=== PATIENT | male | born 1955 | race Caucasian/White ===

== ENCOUNTER 2017-03-16 14:33 | Emergency (ER) | payer OTHER ==
[~2017-03-16] VITALS: Ht 172.7 cm; Wt 142.2 kg
[~2017-03-16 14:33] MED LIST: ASPI81TA28 PO; DLTCD/240 PO; FURO-85 PO; GLC5 PO; LISI20TA3 PO; MISC1CAP60 PO; OMEG-112 PO
[2017-03-16 14:36] VITALS: TEMP 36.7; Ht 172.7 cm; Wt 142.2 kg
--- NOTE | 2017-03-16 14:43 | EMERGENCY ROOM VISIT NOTE ---
History Report prepared by Codie: Gwendolyn Ramos Under the Supervision of: Dr. Marty Zaidi D.O. First contact with patient: 14:39 Chief Complaint: STROKE SYMPTOMS Stated Complaint: RT SIDE OF FACE IS DROPPING History of Present Illness The patient is a 62 year old male who presents to the Emergency Room with complaints of constant right sided facial droop beginning 3 days prior to arrival. He states that he first noticed this when his glasses would not sit evenly on his face. The patient also notes that yesterday he began to experience amplified sound in his right ear. 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 He denies weakness in arms or legs, nausea, vomiting, rash, tobacco use or alcohol use. The patient has a history of diabetes and hypertension. 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 A total of 10 systems reviewed and were otherwise negative. Past Medical & Surgical Medical Problems: (1) DIAB DARRELL WO COMPL, TYPE II OR UNSPEC TYPE, NOT UNCNTRLD (2) HYPERTENSION NOS Family History Diabetes mellitus Heart disease Hypertension Social History Smoking Status: Never Smoker Alcohol Use: occasionally Drug Use: none Marital Status: single Housing Status: lives alone Occupation Status: employed Current/Historical Medications Scheduled Aspirin (Aspirin Ec), 81 MG PO DAILY Diltiazem Hcl (Diltiazem Cd), 1 CAP PO DAILY Furosemide (Lasix), 80 MG PO DAILY Glipizide (Glipizide), 5 MG PO DAILY Lisinopril/Hctz (Zestoretic 20MG/25MG), 1 TAB PO QAM Misc Natural Products ([place]), 1 CAP PO BID [id number] Ethyl Esters ([place]-3), CAP PO DIRECTED Omeprazole (Prilosec), 20 MG PO DAILY Prednisone (Prednisone Tab), 60 MG PO DAILY Valacyclovir Hcl (Valtrex), 1,000 MG PO TID [Honey], 1 TBS PO QAM [Vinegar], 2 TBS PO QAM Allergies Coded Allergies: Metformin (Verified Adverse Reaction, Intermediate, ACUTE DIARRHEA, ABDOMINAL CRAMPING, 03/16/17) Physical Exam Vital Signs Date Time Temp Pulse Resp B/P Pulse Ox O2 Delivery O2 Flow Rate FiO2 03/16/17 16:10 83 03/16/17 15:35 79 18 141/80 95 Room Air 03/16/17 14:59 97 Room Air 03/16/17 14:36 36.7 92 18 192/95 96 Room Air Physical Exam GENERAL: Patient is awake, alert, and in no acute distress. Patient is resting comfortably and showing no signs of anxiety EYES: The conjunctivae are clear. The pupils are round and reactive. Patient has mild difficulty completely closing right eye. EARS, NOSE, MOUTH AND THROAT: The nose is without any evidence of any deformity. Mucous membranes are moist tongue is midline. TM clear bilaterally. NECK: The neck is nontender and supple. RESPIRATORY: Normal respiratory effort is noted there is no evidence of wheezing rhonchi or rales CARDIOVASCULAR: Regular rate and rhythm noted there no murmurs rubs or gallops normal S1 normal S2 GASTROINTESTINAL: The abdomen is soft. Bowel sounds are present in all quadrants. Abdomen is nontender MUSCULOSKELETAL/EXTREMITIES: There is no evidence of gross deformity full range of motion is noted in the hips and shoulders SKIN: Pitting edema bilaterally. There is no obvious evidence of any rash. There are no petechiae, pallor or cyanosis noted. NEUROLOGIC: Patient is awake alert and oriented x3 strength is symmetric patellar reflexes are 2+ bilaterally. Right side facial droop involving forehead. Medical Decision & Procedures ER Provider Diagnostic Interpretation: Radiology results as stated below per my review and radiologist interpretation: CT SCAN OF THE BRAIN WITHOUT IV CONTRAST CLINICAL HISTORY: Change in mental status. Weakness. COMPARISON STUDY: No priors. TECHNIQUE: Unenhanced axial CT scan of the brain is performed from the vertex to the skull base. CT DOSE: 614.27 mGy.cm FINDINGS: Brain parenchyma: There are age-related involutional changes noting mild subcortical and periventricular microangiopathic change. There is no hemorrhage, mass effect, or evidence of acute territorial ischemia by CT criteria. Lopez-white matter is preserved. No extra-axial fluid collection is seen. Ventricles, sulci, cisterns: Prominent secondary to involutional change. Intracranial vasculature: There is atherosclerotic calcification of the cavernous carotid arteries. Calvarium: Unremarkable. Sinuses and mastoids: There is mild mucosal thickening within the frontal, ethmoid, and left maxillary sinuses. The mastoid air cells are well pneumatized. Orbits: The bony orbits are grossly intact. IMPRESSION: There is no hemorrhage, mass effect, or evidence of acute territorial ischemia by CT criteria. Electronically signed by: Garrison Campbell M.D. 03/16/2017 3:21 PM Dictated Date/Time: 03/16/2017 3:19 PM CHEST ONE VIEW PORTABLE CLINICAL HISTORY: Altered mental status. Weakness. COMPARISON STUDY: No previous studies for comparison. FINDINGS: Volumes are normal. There is no pneumothorax or pleural effusion. There is possible opacity within the medial right lung base. Left lung is clear. Cardiac size is normal. There is no evidence of pulmonary edema. IMPRESSION: Possible opacity within the medial right lung base. This is probably artifactual although consolidation could appear similar. Follow-up PA and lateral chest radiographs in 2 weeks are recommended. Electronically signed by: Yfn June M.D. 03/16/2017 3:40 PM Dictated Date/Time: 03/16/2017 3:38 PM Laboratory Results 03/16/17 14:54 Red Blood Count 5.31, Mean Corpuscular Volume 87.8, Mean Corpuscular Hemoglobin 30.3, Mean Corpuscular Hemoglobin Concent 34.5, Mean Platelet Volume 9.5, Neutrophils (%) (Auto) 58.0, Lymphocytes (%) (Auto) 26.5, Monocytes (%) (Auto) 8.9, Eosinophils (%) (Auto) 5.7, Basophils (%) (Auto) 0.6, Neutrophils # (Auto) 5.45, Lymphocytes # (Auto) 2.49, Monocytes # (Auto) 0.84, Eosinophils # (Auto) 0.54, Basophils # (Auto) 0.06 03/16/17 14:54 Test 03/16/17 14:54 03/16/17 16:05 White Blood Count 9.41 K/uL (4.8-10.8) Red Blood Count 5.31 M/uL (4.7-6.1) Hemoglobin 16.1 g/dL (14.0-18.0) Hematocrit 46.6 % (42-52) Mean Corpuscular Volume 87.8 fL (80-100) Mean Corpuscular Hemoglobin 30.3 pg (25-34) Mean Corpuscular Hemoglobin Concent 34.5 g/dl (32-36) Platelet Count 386 K/uL (130-400) Mean Platelet Volume 9.5 fL (7.4-10.4) Neutrophils (%) (Auto) 58.0 % Lymphocytes (%) (Auto) 26.5 % Monocytes (%) (Auto) 8.9 % Eosinophils (%) (Auto) 5.7 % Basophils (%) (Auto) 0.6 % Neutrophils # (Auto) 5.45 K/uL (1.4-6.5) Lymphocytes # (Auto) 2.49 K/uL (1.2-3.4) Monocytes # (Auto) 0.84 K/uL (0.11-0.59) Eosinophils # (Auto) 0.54 K/uL (0-0.5) Basophils # (Auto) 0.06 K/uL (0-0.2) RDW Standard Deviation 39.9 fL (36.4-46.3) RDW Coefficient of Variation 12.5 % (11.5-14.5) Immature Granulocyte % (Auto) 0.3 % Immature Granulocyte # (Auto) 0.03 K/uL (0.00-0.02) Prothrombin Time 10.0 SECONDS (9.0-12.0) Prothromb Time International Ratio 0.9 (0.9-1.1) Activated Partial Thromboplast Time 27.4 SECONDS (21.0-31.0) Partial Thromboplastin Ratio 1.1 Anion Gap 5.0 mmol/L (3-11) Est Creatinine Clear Calc Drug Dose 72.5 ml/min Estimated GFR () 57.8 Estimated GFR (Non- 49.9 BUN/Creatinine Ratio 11.6 (10-20) Calcium Level 9.5 mg/dl (8.5-10.1) Magnesium Level 2.3 mg/dl (1.8-2.4) Total Bilirubin 0.4 mg/dl (0.2-1) Direct Bilirubin < 0.1 mg/dl (0-0.2) Aspartate Amino Transf (AST/SGOT) 18 U/L (15-37) Alanine Aminotransferase (ALT/SGPT) 41 U/L (12-78) Alkaline Phosphatase 75 U/L (45-117) Troponin I < 0.015 ng/ml (0-0.045) Total Protein 8.4 gm/dl (6.4-8.2) Albumin 4.3 gm/dl (3.4-5.0) Lyme Disease IgG Antibody NEG (NEG) Lyme Disease IgM Antibody NEG (NEG) Laboratory results per my review. Medications Administered Medications (Trade) Dose Ordered Sig/Zafar Route Start Time Stop Time Status Last Admin Dose Admin Prednisone (PredniSONE TAB) 60 mg NOW STAT PO 03/16/17 15:33 03/16/17 15:35 DC 03/16/17 15:54 60 MG Valacyclovir HCl (Valtrex Tab) 1,000 mg NOW ONCE PO 03/16/17 15:45 03/16/17 15:46 DC 03/16/17 15:54 1,000 MG ECG Indication: weakness Rate (beats per minute): 86 Rhythm: normal sinus Findings: nonspecific-ST abn (none), no ectopy ED Course 1439: The patient was evaluated in room B1. A complete history and physical examination were performed. 1533: Prednisone Tab 60 mg PO. 1545: Valtrex Tab 1,000 ml PO. 1617: I reevaluated the patient and he is doing well. 1623: Upon reevaluation, the patient is hemodynamically stable. I discussed the results and treatment plan with the patient. He verbalized agreement of the treatment plan. He was discharged home. Medical Decision Differential diagnosis: Etiologies such as metabolic, infection, hypo/hyperglycemia, electrolyte abnormalities, cardiac sources, intracerebral event, toxicologic, neurologic, as well as others were entertained. Nursing notes reviewed. The patient is a 62-year-old male who presented to the emergency department for an evaluation of right facial droop. The patient had right facial droop with 4 head involvement. 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 I discussed patient's laboratory radiographic studies with him. He does have significant eye involvement. For this reason he was started on steroids as well as Valtrex. The patient was encouraged to follow-up with his primary care physician as soon as possible. He was encouraged to continue all medications as prescribed. He was also encouraged to repeat chest x-ray because of the incidental note on chest x-ray read. He was also encouraged to use Lacri-Lube is instructed to return to the emergency department immediately if symptoms change worsen or the need arises. Impression Primary Impression: Francois's palsy Scribe Attestation The scribe's documentation has been prepared under my direction and personally reviewed by me in its entirety. I confirm that the note above accurately reflects all work, treatment, procedures, and medical decision making performed by me. Departure Information Dispostion Home / Self-Care Prescriptions Valacyclovir Hcl (VALTREX) 1 Gm Tab 1000 MG PO TID, #21 TAB Prov: Marty Zaidi, DO 03/16/17 Prednisone (Prednisone Tab) 20 Mg Tab 60 MG PO DAILY, #21 TAB Prov: Marty Zaidi, DO 03/16/17 Omeprazole (Prilosec) 20 Mg Capcr 20 MG PO DAILY, #30 CAP Prov: Marty Zaidi, DO 03/16/17 Referrals Marty Rodriguez M.D. (PCP) Forms HOME CARE DOCUMENTATION FORM, IMPORTANT VISIT INFORMATION Patient Instructions ED Bart Lara, My [facility] Additional Instructions Follow-up with your doctor this week for reevaluation. Continue all medications as prescribed. I would recommend putting an eye ointment in the right eye 3 times a day as well as at bedtime. I would recommend Lacri-Lube for the eye ointment. Continue taking the Prilosec while your taking the steroids. Be sure to watch her blood sugar while your taking the prednisone in nature causing your blood sugar to elevate more than usual with your history of diabetes. I would also recommend a repeat chest x-ray in 2 weeks to evaluate the possible abnormality noted on chest x-ray today.
[2017-03-16 14:59] VITALS: O2SAT 97
[2017-03-16 15:05] LABS: BASO % 0.6 %; BASO ABS # 0.06 K/uL (0-0.2); COMPLETE YES; EOS % 5.7 %; HEMATOCRIT 46.6 % (42-52); IG% 0.3 %; LYMPH % 26.5 %; LYMPH ABS # 2.49 K/uL (1.2-3.4); MEAN CELL VOLUME 87.8 fL (80-100); MEAN CORPUSCULAR HEMOGLOBIN 30.3 pg (25-34); MEAN CORPUSCULAR HGB CONC 34.5 g/dl (32-36); MEAN PLATELET VOLUME 9.5 fL (7.4-10.4); MONO % 8.9 %; PLATELET COUNT 386 K/uL (130-400); RED BLOOD COUNT 5.31 M/uL (4.7-6.1); WHITE BLOOD COUNT 9.41 K/uL (4.8-10.8)
[2017-03-16 15:19] LABS: INR 0.9 (0.9-1.1); PARTIAL THROMBOPLASTIN RATIO 1.1
--- NOTE | 2017-03-16 15:22 | DIAGNOSTIC IMAGING REPORT ---
CT SCAN OF THE BRAIN WITHOUT IV CONTRAST CLINICAL HISTORY: Change in mental status. Weakness. COMPARISON STUDY: No priors. TECHNIQUE: Unenhanced axial CT scan of the brain is performed from the vertex to the skull base. CT DOSE: 614.27 mGy.cm FINDINGS: Brain parenchyma: There are age-related involutional changes noting mild subcortical and periventricular microangiopathic change. There is no hemorrhage, mass effect, or evidence of acute territorial ischemia by CT criteria. Lopez-white matter is preserved. No extra-axial fluid collection is seen. Ventricles, sulci, cisterns: Prominent secondary to involutional change. Intracranial vasculature: There is atherosclerotic calcification of the cavernous carotid arteries. Calvarium: Unremarkable. Sinuses and mastoids: There is mild mucosal thickening within the frontal, ethmoid, and left maxillary sinuses. The mastoid air cells are well pneumatized. Orbits: The bony orbits are grossly intact. IMPRESSION: There is no hemorrhage, mass effect, or evidence of acute territorial ischemia by CT criteria. Electronically signed by: Garrison Campbell M.D. 03/16/2017 3:21 PM Dictated Date/Time: 03/16/2017 3:19 PM
[2017-03-16 15:27] LABS: ALT/SGPT 41 U/L (12-78); AST/SGOT 18 U/L (15-37); BLOOD UREA NITROGEN 17 mg/dl (7-18); BUN/CREATININE RATIO 11.6 (10-20); CALCIUM 9.5 mg/dl (8.5-10.1); CARBON DIOXIDE 34 mmol/L (21-32); CHLORIDE 99 mmol/L (98-107); GLUCOSE 156 mg/dl (70-99); MAGNESIUM 2.3 mg/dl (1.8-2.4); POTASSIUM 3.6 mmol/L (3.5-5.1); SODIUM 138 mmol/L (136-145)
[2017-03-16 15:32] LABS: ALKALINE PHOSPHATASE 75 U/L (45-117)
[2017-03-16] MEDS ORDERED: VALA1TAB2 PO (15:36)
[2017-03-16] MEDS ORDERED: OMEP20CA59 PO (15:36)
[2017-03-16] MEDS ORDERED: PRED20TA2 PO (15:36)
[2017-03-16] MEDS ORDERED: HONEY PO (15:41)
[2017-03-16] MEDS ORDERED: LISI-788 PO (15:41)
[2017-03-16] MEDS ORDERED: VINEGAR PO (15:41)
--- NOTE | 2017-03-16 15:41 | DIAGNOSTIC IMAGING REPORT ---
CHEST ONE VIEW PORTABLE CLINICAL HISTORY: Altered mental status. Weakness. COMPARISON STUDY: No previous studies for comparison. FINDINGS: Volumes are normal. There is no pneumothorax or pleural effusion. There is possible opacity within the medial right lung base. Left lung is clear. Cardiac size is normal. There is no evidence of pulmonary edema. IMPRESSION: Possible opacity within the medial right lung base. This is probably artifactual although consolidation could appear similar. Follow-up PA and lateral chest radiographs in 2 weeks are recommended. Electronically signed by: Yfn June M.D. 03/16/2017 3:40 PM Dictated Date/Time: 03/16/2017 3:38 PM
[2017-03-16 16:09] LABS: LYME DISEASE AB IGG NEG (NEG); LYME DISEASE AB IGM NEG (NEG)
[2017-03-16 16:22] LABS: MANUAL MICROSCOPIC REQUIRED? NO; REVIEW REQ? NO; URINE APPEARANCE CLOUDY (CLEAR); URINE BILIRUBIN NEG (NEG); URINE COLOR YELLOW; URINE EPITHELIAL CELL AUTO 0-5 /lpf (0-5); URINE NITRITE NEG (NEG); URINE PH 8.5 (4.5-7.5); URINE SPECIFIC GRAVITY 1.015 (1.000-1.030); UROBILINOGEN NEG (NEG)
[2017-03-16 16:42] VITALS: BP 139/71; PULSE 74; O2SAT 96
== END 2017-03-16 16:43 | disposition home or self-care (01) ==
LOC: C.EDB 14:35
DX: G51.0 Bell's palsy (principal); E11.9 Type 2 diabetes mellitus without complications; I10 Essential (primary) hypertension; Z83.3 Family history of diabetes mellitus; Z82.49 Family history of ischemic heart disease and other diseases of the circulatory system; Z79.82 Long term (current) use of aspirin; Z79.899 Other long term (current) drug therapy

== ENCOUNTER → 2017-03-30 | Outpatient (CLI) | payer OTHER ==
[~2017-03-30] MED LIST changes: +HONEY PO; +LISI-788 PO; -LISI20TA3 PO; +OMEP20CA59 PO; +PRED20TA2 PO; +VALA1TAB2 PO; +VINEGAR PO
--- NOTE | 2017-03-30 13:55 | DIAGNOSTIC IMAGING REPORT ---
CHEST 2 VIEWS ROUTINE CLINICAL HISTORY: CHU'S PALSY COMPARISON STUDY: 03/16/2017 FINDINGS: The cardiac and mediastinal contours are normal. There is no evidence of focal pulmonary consolidation. There is no evidence of failure. No pleural effusions are visualized.[ IMPRESSION: No active disease in the chest. Electronically signed by: Janusz Espinosa M.D. 03/30/2017 1:54 PM Dictated Date/Time: 03/30/2017 1:53 PM
[2017-03-30 15:45] LABS: LYME DISEASE AB IGG NEG (NEG); LYME DISEASE AB IGM NEG (NEG)
== END | disposition home or self-care (01) ==
LOC: C.RAD 13:10
PROVIDERS: ATTEND Family Medicine
DX: G51.0 Bell's palsy (principal)

== ENCOUNTER 2022-08-10 05:08 | Observation (INO) ==
--- NOTE | 2022-06-30 11:28 | Anesthesiology Consultation ---
Date of Service June 30, 2022 Assessment & Plan (1) Encounter for pre-operative examination: Chart Review Chart Review: Acceptable Risk for Surgery (pending preop Covid testing results ) and Patient NOT seen in Pre Admission Testing Pt initially scheduled 06/07/22 for surgery- upon arrival to [facility] - it was noted that patient had a blister overlying the medial aspect of the knee- surgeon cancelled case- patient rescheduled to 07/05/22 - Check BSG AM DOS Per nursing assessment 06/23/22, patient denies any recent travel. No known Covid positive exposures or Covid related symptoms. Pt tested Covid negative 06/17/22 at [facility]. No known Covid infection in the past 90 days. Pt is fully vaccinated for Covid. Preop Covid testing scheduled 07/01/22= will await results Pt seen by PCP 05/06/22= Pt seen for follow up- to review recent labs and ECHO results. Scheduled for TKA 05/24/22. DM- stable. Will continue current medication regiment at this time. Follow up in Jul 2022 with repeat A1C. LE edema- stable- does not seem to be cardiac related. Recommended LE elevation and compression stockings. "From upcoming surgery perspective for his total knee replacement he is low risk for adverse cardiorespiratory outcomes with a moderate to high risk procedure. I have no issues with him proceeding with the surgery given his unremarkable cardiac work-up recently." History Surgery Operation Date: 07/05/22 10:10 Proposed Procedures p Left Total Knee Arthroplasty - Adolof Paty Morrison MD Height/Weight Height: 5 ft 8 in Weight: 130.635 kg Allergies Allergy/AdvReac Type Severity Reaction Status Date / Time metformin AdvReac Intermediate ACUTE Verified 06/23/22 14:59 DIARRHEA,ABDOMINAL CRAMPING Medications Home Medications Medication Instructions Recorded Confirmed Last Taken aspirin 81 mg tablet 81 mg PO QAM 05/09/22 06/23/22 06/03/22 cinnamon bark 500 mg capsule 500 mg PO BID 05/09/22 06/23/22 06/04/22 (Cinnamon) diltiazem HCl 360 mg 360 mg PO QAM 05/09/22 06/23/22 06/07/22 03:00 capsule,extended release 24 hr furosemide 80 mg tablet 80 mg PO QAM 05/09/22 06/23/22 06/03/22 glimepiride 4 mg tablet 4 mg PO BID 05/09/22 06/23/22 06/03/22 lisinopril 20 mg tablet 20 mg PO QAM 05/09/22 06/23/22 06/03/22 naproxen 500 mg tablet 500 mg PO BID PRN Pain 05/09/22 06/23/22 06/03/22 omega-3 fatty acids-vitamin E 1 cap PO BID 05/09/22 06/23/22 06/03/22 1,000 mg capsule pravastatin 40 mg tablet 40 mg PO HS 05/09/22 06/23/22 06/06/22 19:00 saw palmetto 1,000 mg capsule 1,000 mg PO BID 05/09/22 06/23/22 06/04/22 Past Medical History Medical History Diabetes mellitus, type 2 NIDDM Glucose stable History of cellulitis (~2014) 10 day inpatient and IV abx. No problems since. Hx of Francois's palsy x2 (~)- unknown origin Hx of skin disorder 2021, "skin blisters before last sx, being evaluated by dermatology" Hyperlipidemia Hypertension Mild aortic stenosis Per 04/2022 ECHO Sleep apnea Wears cpap nightly Past Family History Family History Mother FHx: diabetes mellitus Sister FHx: diabetes mellitus Brother FHx: diabetes mellitus FHx: colonic polyps Other No family history of adverse response to anesthesia Past Surgical History Surgical History History of colonoscopy Social History Smoking Status: Never smoker Do You Dip or Chew Tobacco: No Hx Alcohol Use: Yes Alcohol type: beer alcohol intake frequency: holidays/special occasions only Hx Substance Use: No substance use type: does not use Testing Laboratory Results 06/28/22= WBC: 8.76 H/H: 14.8/42.2 PLATELETS: 283 SODIUM: 141 POTASSIUM: 3.9 CHLORIDE: 97 CO2: 31 BUN: 29 CREATININE: 1.07 GLUCOSE: 125 HGB A1C: 6.1 PT: 12.2 INR: 0.9 Electrocardiogram Date: 04/22/22 Findings: + NSR @ (71bpm ) Nonspecific intra-ventricular conduction delay Chest X-Ray Date: 04/22/22 Findings: + NAD and + cardiomegaly (mild) FINDINGS: PA and lateral chest radiographs are compared to study dated . The heart is enlarged. The pulmonary vasculature is noncongested. Mild atelectasis is noted at the lung bases. The lungs and pleural spaces are otherwise clear. There is no pneumothorax. The bony thorax appears intact. Echocardiogram Date: 05/05/22 EF: 65% LV Function: normal RWMA: + none Other Findings: + diastolic dysfunction (Grade I ); no LVH Mildly dilated right ventricle. Calcified, tricuspid aortic valve with prominent restriction of the left coronary cusp. Mild aortic stenosis. (LVOT/AV ratio 0.58). AV peak velocity 2.60 m/s, AV mean gradient 14 mmHg, DWAYNE 2.2 cm Mild MR. Insufficient data for estimation of PASP.
[~2022-08-10 05:08] MED LIST changes: +ACETAMINOPHEN 500 MG TAB PO SCH; -ASPI81TA28 PO; +CeleBREX 200 MG CAP PO SCH; -DLTCD/240 PO; -FURO-85 PO; +GABAPENTIN 300 MG CAP PO SCH; -GLC5 PO; -HONEY PO; -LISI-788 PO; +LR 500ML BOLUS, THEN 15ML/HR IV SCH; +LR 60ML/HR IV SCH; +METOCLOPRAMIDE HCL 10 MG TABLET PO SCH; -MISC1CAP60 PO; -OMEG-112 PO; -OMEP20CA59 PO; -PRED20TA2 PO; +TRANEXAMIC ACID 1,000 MG **IV Intra-op IV SCH; +TRANEXAMIC ACID 1,000 MG **IV Pre-op IV SCH; -VALA1TAB2 PO; -VINEGAR PO; +oxyCODONE HCL 10 MG TABCR (OxyCONTIN) PO SCH
[2022-08-10] MEDS ORDERED: oxyCODONE HCL 10 MG TABCR (OxyCONTIN) PO SCH (06:00)
[2022-08-10] MEDS ORDERED: CeleBREX 200 MG CAP PO SCH (06:00)
[2022-08-10] MEDS ORDERED: METOCLOPRAMIDE HCL 10 MG TABLET PO SCH (06:00)
[2022-08-10] MEDS ORDERED: TRANEXAMIC ACID 1,000 MG **IV Pre-op IV SCH (06:00)
[2022-08-10] MEDS ORDERED: TRANEXAMIC ACID 1,000 MG **IV Intra-op IV SCH (06:00)
[2022-08-10] MEDS ORDERED: GABAPENTIN 300 MG CAP PO SCH (06:00)
[2022-08-10] MEDS ORDERED: LR 500ML BOLUS, THEN 15ML/HR IV SCH (06:00)
[2022-08-10] MEDS ORDERED: ROPIVACAINE 0.5% HCL/PF 150 MG, BUPIVACAINE 0.75% MPF 20 ML, EPINEPHrine 0.15 MG, Ketor... INFIL SCH (06:00)
[2022-08-10] MEDS ORDERED: LR 60ML/HR IV SCH (06:00)
[2022-08-10] MEDS ORDERED: ACETAMINOPHEN 500 MG TAB PO SCH (06:00)
[2022-08-10] MEDS ORDERED: ROPIVACAINE 0.5% 5 MG/ML 30 ML VIAL ONE (06:24)
[2022-08-10] MEDS ORDERED: BUPIVACAINE 0.5 % 5 MG/1 ML PF 10ML VIAL ONE (06:24)
[2022-08-10] MEDS ORDERED: EPINEPHrine INJ 1 MG/ML AMP ONE (06:24)
--- NOTE | 2022-08-10 06:38 | History & Physical Bridge Note ---
Date of Service August 10, 2022 History & Physical Bridge Note I have examined the patient, reviewed the History & Physical and in the interval since the performance of the History & Physical I have noted the following changes of clinical significance: no changes noted Patient is aware of the risks, is asymptomatic, and tested negative for COVID- 19.
[2022-08-10] MEDS ORDERED: LIDOCAINE 2% MPF LOCAL 5 ML VIAL INFIL ONE (06:41)
[2022-08-10] MEDS ORDERED: fentaNYL citrate 100 MCG/2 ML VIAL ONE (06:41)
[2022-08-10] MEDS ORDERED: MIDAZOLAM HCL 1 MG/ML 2ML VIAL ONE (06:41)
[2022-08-10] MEDS ORDERED: PROPOFOL IV EMULSION 10 MG/ML 20 ML VIAL IV ONE ×4 (06:41→09:25)
[2022-08-10] MEDS ORDERED: ORTHO JOINT ANESTHETIC ONE (06:44)
[2022-08-10] MEDS ORDERED: NALOXONE HCL 0.4 MG/1 ML VIAL/CARP IV PRN ×2 (08:01→12:04)
[2022-08-10] MEDS ORDERED: FLUMAZENIL 0.1 MG/1 ML 10 ML VIAL IV PRN (08:01)
[2022-08-10] MEDS ORDERED: ONDANSETRON INJ 2 MG/ML 2 ML VIAL IV PRN ×2 (08:01→12:04)
[2022-08-10] MEDS ORDERED: ePHEDrine sulfate 50 MG/ML AMP IV PRN (08:01)
[2022-08-10] MEDS ORDERED: ATROPINE SULFATE 0.1 MG/ML 10ML SYR IV PRN (08:01)
[2022-08-10] MEDS ORDERED: PROMETHAZINE HCL 12.5 MG in SODIUM CHLORIDE 0.9% 50 ML IV PRN (08:01)
[2022-08-10] MEDS ORDERED: HYDROmorphone INJ 1 MG/ML SYRINGE IV PRN (08:01)
[2022-08-10] MEDS ORDERED: ONDANSETRON INJ 2 MG/ML 2 ML VIAL ONE (08:55)
--- NOTE | 2022-08-10 09:58 | Post Operative Brief Note ---
Immediate Post Op Note v1 Date of Surgery August 10, 2022 Pre & Post Diagnosis Operation Date: 08/10/22 07:00 Pre-Op Diagnosis: Osteoarthritis Left Knee Post-Op Diagnosis: Osteoarthritis Left Knee I identified the patient and participated in the time-out.: Yes Procedure Operation Date: 08/10/22 07:00 Actual Procedures p Left Total Knee Arthroplasty(Left) - Adolfo Morrison MD Surgeon Adolfo Morrison MD Property Assessment Monitor Stephanie Alexis DO & C JOSE Murrell Estimated Blood Loss 120 Findings Consistent with Post-Op Diagnosis Fluids 1100 cc Specimens Left knee contents Anesthesia Type MAC Spinal Regional Complications none
--- NOTE | 2022-08-10 09:59 | Operative Report ---
Post Operative Report Pre & Post Diagnosis Operation Date: 08/10/22 07:00 Pre-Op Diagnosis: Osteoarthritis Left Knee Post-Op Diagnosis: Osteoarthritis Left Knee I identified the patient and participated in the time-out.: Yes Procedure Operation Date: 08/10/22 07:00 Actual Procedures p Left Total knee replacement, imageless computer assisted navigation - Adolfo Morrison MD Surgeon Adolfo Morrison MD Glass Engraver Stephanie Alexis DO & Rashard Murrell PA-C Estimated Blood Loss 120 Findings See Below Examined Under Anesthesia: ROM -- There was 0 degrees to 125 degrees of flexion Ligamentous examination -- revealed stable Aldair, posterior drawer; varus and valgus stress at 0 and 30 degrees showed some opening 1-2 mm. Outerbridge Type IV changes of Tri-compartments. Fluids 1100 cc Specimens left knee contents Anesthesia Type MAC Spinal Regional Complications none Indications This is a 67-year-old female who has clinical and radiographic findings consistent with osteoarthritis of the a left knee. I recommended that a left total knee replacement be performed. The patient understands the risks of surgery, which include but not limited to: bleeding, infection, re-operation, damage to nerves and arteries, continued knee pain, knee stiffness, DVT, and . The patient understands all of these instructions and explanations, all of his questions have been satisfactorily addressed and the patient has elected to proceed. Informed consent was signed. Description of Procedure IMPLANTS: 1. Femur: Triathlon #5 Left PS with distal pegs. 2. Tibia: Triathlon #5 Talala with 12 x 50 mm stem. 3. Insert: Triathlon #5 x 13 mm TS X3 poly. 4. Patella: Triathlon A38 x 11 mm X3 poly. 5. Simplex Low viscosity cement with Gentamicin. Procedure: The patient was taken to the Operating Room and placed in the supine position after spinal and adductor canal nerve block was administered. My initials and a multidisciplinary time-out were used to identify the left leg as the correct operative limb. A tourniquet was placed high in the thigh. Prior to the incision, 3 grams of intravenous Ancef were given. The left leg was then prepped and draped in a standard sterile fashion. An Esmarch was used to exsanguinate the leg and the tourniquet was inflated to 250 mmHg. The planned mid-line 20 cm incision curved around the lateral edge of the patella was crea adriano exposing the extensor mechanism. The medial parapatellar arthrotomy was made and the patella was everted. The patella was addressed first. It was prepared by reaming from 25 mm down to 14 mm. An A38 button was found to fit best. The peg holes were made in the standard fashion. The femur was addressed next and using computer assisted OrthoAlign with 3 degrees of flexion and 0 degrees of valgus, removing 9 mm in the standard fashion for the distal cut. The cut was made and the 4-in-1 cutting block for a size 5 femur was placed. These cuts and the cuts to place the box were made in the standard fashion. The distal peg were later created after testing knee stability with trial components in and using the trial femur as a guide in the standard fashion. Our attention was then drawn to the tibia cut with using imageless computer assisted OrthoAlign, taking 2 mm from the medial low side. There was sufficient extension and flexion gap to fit a 13 mm spacer. A #5 Tibial baseplate fit well. A trial with a 13 mm spacer showed excellent stability in extension, but there was slight mid-flexion instability, and thumbs free patellar tracking. The trial was switched to a 13 mm Total stabilized spacer which showed excellent stability in both flexion and extension, with good ligament balance, and thumbs free patellar tracking. Range of motion of 0-125 degrees. The tibial baseplate was prepped for the keel and stem. A stem was used due to the increased stress due to more constrained implant being used. All components were removed. The tourniquet was deflated. Hemostasis was obtained. 90 ml of total knee cocktail were injected into the soft tissues and periosteum. After a 14 minute break, the limb was exsanguinated again and the tourniquet was re-inflated. All surfaces were copiously irrigated prior to placement of the components. The femoral component followed by Tibial baseplate were cemented in place and a 13mm trial placed. Next, the patellar button was placed using the same batch of cement. Once the cement had cured, the range of motion and stability were unchanged. The 13 mm X3 TS poly was placed. Again the range of motion and stability were unchanged The extensor mechanism was closed with 1-0 and 0 Vicryl with the knee bent approximately 60 degrees in a standard fashion. The peritenon and deep fascia was closed with 2-0 Vicryl. The subcutaneous layer was closed with 3-0 Vicryl. The skin was closed with Zipline and shield. The limb was cleaned and dried. 4x4 dressing was placed over top followed by ABDs, sterile Webril, and a foot to thigh Sonido bandage. The patient was then transferred to the Recovery Room in stable condition. The sponge and needle counts were correct. POST-OP INSTRUCTIONS: The patient will be WBAT. The patient will be admitted to the hospital. Labs will be obtained during the stay. DVT prophylaxis will included aspirin for 6 weeks, TEDs, and mechanical foot pumps. The dressing will be changed prior to their discharge or postop day #2 and covered with a Silverlon dressing if dry, whichever comes first. I attest to the content of the Intraoperative Record and any orders documented therein. Any exceptions are noted below.
--- NOTE | 2022-08-10 10:21 | Operative Report ---
Post Operative Report Pre & Post Diagnosis Operation Date: 08/10/22 07:00 Pre-Op Diagnosis: Osteoarthritis Left Knee Post-Op Diagnosis: Osteoarthritis Left Knee I identified the patient and participated in the time-out.: Yes Procedure Operation Date: 08/10/22 07:00 Actual Procedures p Left Total Knee Arthroplasty(Left) - Adolfo Morrison MD Surgeon Sandra Morrison MD Contracts Administrator Stephanie Alexis DO & C JOSE Murrell Estimated Blood Loss 120 Findings Consistent with Post-Op Diagnosis see operative report Specimens see operative report Drains none Complications none Disposition Accompanied Patient To Recovery: Yes Indications This 67 year old male presented to the office with complaints of persisting left knee pain. He had tried conservative care measures without improvement. He elected to proceed with surgical intervention after being educated about potential risks and outcomes. Preoperative imaging was obtained. Patient was scheduled for this procedure numerous times but canceled for various reasons until today. Description of Procedure Patient was administered a spinal anesthetic and then taken to the operating room where he was given sedation. He was prepped and draped in the usual sterile fashion. Please see Dr. Morrison's operative report for specifics of the procedure. I was present for the entire case from initial patient positioning through final wound closure. Assistance was provided in tissue retraction, hemostasis, trial implant placement, final implant placement, and final wound closure. Patient was taken to the recovery room in satisfactory condition. I attest to the content of the Intraoperative Record and any orders documented therein. Any exceptions are noted below.
[2022-08-10] MEDS: fentaNYL citrate 100 MCG/2 ML VIAL IV PRN ×4 (10:26→10:41)
--- NOTE | 2022-08-10 10:55 | Anesthesiology Progress Note ---
Date of Service August 10, 2022 Anesthesia Post Procedure Vital Signs Vital Signs: Temp Pulse Pulse Resp BP Pulse Ox O2 Del Method 08/10/22 10:50 36.3 C L 60 17 124/62 96 Nasal Cannula 08/10/22 10:30 66 21 131/61 97 Oxymask 08/10/22 10:40 61 17 122/65 96 Oxymask 08/10/22 10:20 36.7 C 79 14 162/79 H 94 Oxymask 08/10/22 05:36 37 C 74 20 170/93 H 98 Room Air O2 Flow Rate 08/10/22 10:50 2 08/10/22 10:30 5 08/10/22 10:40 2 08/10/22 10:20 5 08/10/22 05:36 Pain Intensity Knee: Pain Intensity: 4 Transfer of Care Handoff Completed per policy Notes Mental Status: alert / awake / arousable Patient Amnestic to Procedure: Yes Nausea / Vomiting: adequately controlled Pain: adequately controlled Airway Patency, RR, SpO2: stable & adequate BP & HR: stable & adequate Hydration State: stable & adequate Neuraxial Anesthesia: was administered and sensory block is resolving Anesthetic Complications: no major complications apparent
--- NOTE | 2022-08-10 11:33 | XRay Report ---
LEFT KNEE 2 VIEWS History: Left total knee arthroplasty. Degenerative arthritis. Postop. FINDINGS: The patient is status post a left total knee arthroplasty. The hardware is intact. No fract ure or dislocation. IMPRESSION: Left total knee arthroplasty. No evidence for hardware complication. ACT 112: Negative or not required by law. Electronically signed by: Magnus Eisenberg M.D. 08/10/2022 11:32 AM
[2022-08-10] MEDS ORDERED: TAMSULOSIN HCL 0.4 MG CAP PO PRN (12:04)
[2022-08-10] MEDS ORDERED: METOCLOPRAMIDE HCL INJ 5 MG/ML 2 ML VIAL IV PRN (12:04)
[2022-08-10] MEDS ORDERED: diphenhydrAMINE 50 MG/ML VIAL IV PRN (12:04)
[2022-08-10] MEDS ORDERED: HYDROmorphone INJ 0.5 MG/0.5 ML SYR IV PRN (12:04)
[2022-08-10] MEDS ORDERED: ALUMINUM/MAGNESIUM SUSP 30 ML UDC PO PRN (12:04)
[2022-08-10] MEDS ORDERED: bisacodyL 10 MG SUPP PR PRN (12:04)
[2022-08-10] MEDS ORDERED: PHARMACY GLYCEMIC MGMT CONSULT PRN (12:04)
[2022-08-10] MEDS ORDERED: MAGNESIUM HYDROXIDE SUSP 30 ML UDC PO PRN (12:04)
--- NOTE | 2022-08-10 12:27 | Hospitalist Consultation ---
Date of Consultation August 10, 2022 Assessment & Plan (1) Status post total left knee replacement: -Patient is post-op day 0 S/P left total knee arthropathy with Dr. Morrison -No reported intraoperative complications, EBL reported to be 120 mL -Currently afebrile, hemodynamically stable, and stable on 2L NC -Pain control, perioperative abx, DVT ppx, and fluids per the primary team -Ordered 20 mg PO Famotidine BID while receiving Toradol for stress ulcer prophylaxis (2) Diabetes mellitus type 2, uncontrolled: -Normally on Glimepiride outpatient, can hold while admitted -Pharmacy consult for glycemic control, will follow their plan -Ordered A1C to see how his blood sugar has been controlled on the Glimepiride, follow-up and adjust as needed (3) Hypertension: -Normally on Diltiazem, lasix, and lisinopril-HCTZ outpatient -Currently hemodynamically stable -Can restart diltiazem today if needed for hypertension -Would wait until am labs tomorrow to see his renal function and electrolytes are stable before restarting lasix and lisiopril-HCTZ (4) ELE (obstructive sleep apnea): -Wean O2 as able to keep SpO2 equal to or greater than 95% -Will order HS CPAP as he brought his own machine Plan The patient was discussed with Dr. Raymond at the time of the consult Supervising Physician Co-Signing Physician Notes I personally saw and examined the patient. I verified all garcia points and agree with Con Ramos PA-C with the following exceptions and/or additions: Patient doing well post operatively. Discussed patient medical history and medications. No history of heart failure therefore despite his lasix use very low risk of IV fluids overnight. Will defer pain and VTE management to ort hopedics. Pt reports HbA1C 7.? therefore unlikely need to change medications on discharge. HTN reportedly well controlled. BP well controlled and can restart BP meds as already prescribed tomorrow. Low risk of toradol use given no history of ulcers, GERD, gastritis however would recommend GI prophylaxis with famotidine while in hospital on toradol. O/E HS1+2, no mumurs, Chest CTAB, Abdo SNT, NV intact distal to operation site History of Present Illness Reason for Consultation: Post-op management Requesting Physician: Dr. Morrison Attending Physician: Dr. Raymond History of Present Illness Kane is a 67 year old male with a PMH significant for DM II, HTN, obesity, and OA who presented to the [facility] OR on 08/10/22 for elective Left Total Knee Arthroplasty with Dr. Morrison. Per the post-op note, there were not reported intraoperative complications and EBL was approximately 120 mL. At the time of the exam the patient was sitting up comfortably in bed eating lunch with his sitting bedside. He states that his left leg pain is approximately a 5/10 at the present time and he denies any other complaints or problems. When asked, he states that he does not have a history of GERD, reflux, or ulcers. He normally takes lasix and lisinopril-HCTZ daily along with aspirin and glimepiride. He was told to hold the aspirin and antihypertensives 5 days prior to his procedure. He was currently on 2L O2 via nasal cannula and saturating at 97%. Denies current fever, chills, headache, changes in vision, hearing, taste, and smell, chest pain, SOB, cough, abdominal pain, nausea, vomiting, diarrhea, hematemesis, melena, dysuria, hematuria, and recent falls. All systems have been reviewed and are otherwise negative. Allergies Allergy/AdvReac Type Severity Reaction Status Date / Time metformin AdvReac Intermediate ACUTE Verified 08/10/22 05:41 DIARRHEA,ABDOMINAL CRAMPING Home Medications Medication Instructions Recorded Confirmed Type aspirin 81 mg tablet 81 mg PO QAM 05/09/22 08/10/22 History cinnamon bark 500 mg capsule 500 mg PO BID 05/09/22 08/10/22 History (Cinnamon) diltiazem HCl 360 mg 360 mg PO QAM 05/09/22 08/10/22 History capsule,extended release 24 hr furosemide 80 mg tablet 80 mg PO QAM 05/09/22 08/10/22 History glimepiride 4 mg tablet 4 mg PO BID 05/09/22 08/10/22 History lisinopril 20 mg tablet 20 mg PO QAM 05/09/22 08/10/22 History naproxen 500 mg tablet 500 mg PO BID PRN Pain 05/09/22 08/10/22 History omega-3 fatty acids-vitamin E 1 cap PO BID 05/09/22 08/10/22 History 1,000 mg capsule pravastatin 40 mg tablet 40 mg PO HS 05/09/22 08/10/22 History saw palmetto 1,000 mg capsule 1,000 mg PO BID 05/09/22 08/10/22 History Patient History Medical History (Updated 08/10/22 @ 19:33 by Adolfo Morrison MD) Arthritis of knee, left Diabetes mellitus, type 2 NIDDM Glucose stable History of cellulitis (~2014) 10 day inpatient and IV abx. No problems since. Hx of Francois's palsy x2 (~)- unknown origin Hx of skin disorder 2021, "skin blisters before last sx, being evaluated by dermatology" Hyperlipidemia Hypertension Mild aortic stenosis Per 04/2022 ECHO Sleep apnea Wears cpap nightly Surgical History (Updated 08/10/22 @ 12:33 by Con Ramos PA-C) History of colonoscopy Family History Mother FHx: diabetes mellitus Sister FHx: diabetes mellitus Brother FHx: diabetes mellitus FHx: colonic polyps Other No family history of adverse response to anesthesia Social History Smoking Status: Never smoker Second Hand Exposure: No; Do You Dip or Chew Tobacco: No; Tobacco Cessation Education Requested by Patient: No Hx Alcohol Use: No Hx Substance Use: No Preferred Language: Mohawk Communication Ability: Effective Industrial Commercial Groundskeeper Required: No Beliefs That Will Affect Care: None marital status: Current Living Situation: Spouse How many Children do You have: 1 Other Information That Helps Us Care for You: No Feels Safe at Home: Yes Safety Concerns: Feels Safe At This Time Assistive Devices: Cane and Walker Assistive Devices Comment: uses a cane/ "walking stick" when out of house Review of Systems Review of Systems: Denies current fever, chills, headache, changes in vision, hearing, taste, and smell, chest pain, SOB, cough, abdominal pain, nausea, vomiting, diarrhea, hematemesis, melena, dysuria, hematuria, and recent falls. All systems have been reviewed and are otherwise negative. Physical Exam Physical Exam: Physical Exam: General: In no acute distress, stated age, well-nourished, good hygiene HEENT: Normocephalic, atraumatic, no scleral icterus, pupils around round, symmetrical, and reactive to light, moist mucus membranes, trachea midline, no thyromegaly Chest/Pulm: No respiratory distress, symmetrical chest expansion, clear breath sounds throughout Cardiac: RRR, no murmurs noted Abdomen: Negative for ascites and bruising, normoactive bowel sounds, soft, non-tender to palpation throughout Musculoskeletal: Patient currently with LLE wrapped and without signs of bleeding or drainage, full ROM in the BL upper extremities, full ROM of the RLE, patient with goot sensation and motor function in the right foot and toes Extremities: Radial, dorsalis pedis, and posterior tibial pulses are intact and symmetrical, no edema noted in the BL LE's Skin: Warm, dry, no rashes , lesions, or scars noted Neuro: Alert and oriented to person, place, month, year, and president, no focal defects, CN II-XII tested and intact, finger to nose test negative, no tremors noted Psych: No acute distress, calm and cooperative during the exam Results & Data Results & Data ([facility]) Vital Signs (Past 12 Hours) Vital Signs Temp Pulse Pulse Resp BP Pulse Ox O2 Del Method 08/10/22 12:04 36.8 C 63 18 145/74 H 95 Nasal Cannula 08/10/22 11:45 36.4 C L 60 20 155/74 H 99 Nasal Cannula 08/10/22 11:30 59 L 20 141/69 H 99 Nasal Cannula 08/10/22 11:15 60 19 130/68 97 Nasal Cannula 08/10/22 11:00 62 18 135/64 95 Nasal Cannula 08/10/22 10:50 36.3 C L 60 17 124/62 96 Nasal Cannula 08/10/22 10:30 66 21 131/61 97 Oxymask 08/10/22 10:40 61 17 122/65 96 Oxymask 08/10/22 10:20 36.7 C 79 14 162/79 H 94 Oxymask 08/10/22 05:36 37 C 74 20 170/93 H 98 Room Air O2 Flow Rate 08/10/22 12:04 2 08/10/22 11:45 2 08/10/22 11:30 2 08/10/22 11:15 2 08/10/22 11:00 2 08/10/22 10:50 2 08/10/22 10:30 5 08/10/22 10:40 2 08/10/22 10:20 5 08/10/22 05:36 Laboratory Results Abnormal lab results 08/10/22 08/10/22 Range/Units 05:43 10:23 POC Glucose 142 H 204 H (70-99) mg/dl Diagnostic Findings Knee X-Ray 08/10/22 10:29 LEFT KNEE 2 VIEWS History: Left total knee arthroplasty. Degenerative arthritis. Postop. FINDINGS: The patient is status post a left total knee arthroplasty. The hardware is intact. No fracture or dislocation. IMPRESSION: Left total knee arthroplasty. No evidence for hardware complication. ACT 112: Negative or not required by law. Electronically signed by: Magnus Eisenberg M.D. 08/10/2022 11:32 AM ECG Additional Comments: No ECG available at the time of the consult PG Care Time/CCT Total # of Minutes Spent Total Time Spent with Patient: Total time spent is greater than 50% in coordination of care (as documented) at patient's floor/unit and/or counseling patient: Coding [place] [address] Office/OBS Consult Lvl 3 Patient Type Established Medical Decision Making Moderate Complexity Diagnoses Status post total left knee replacement Z96.652 Diabetes mellitus type 2, uncontrolled E11.65 Hypertension I10 ELE (obstructive sleep apnea) G47.33
[2022-08-10] MEDS: oxyCODONE HCL IR 5 MG TAB (IMMEDIATE RELEASE) PO PRN (12:37)
[2022-08-10] MEDS: SODIUM CHLORIDE 0.9% 1000ML 1,000 ML IV SCH ×2 (12:38→20:59)
[2022-08-10] MEDS ORDERED: GLUCOSE 40% GEL 15 GM TUBE PO PRN (13:00)
[2022-08-10] MEDS ORDERED: DEXTROSE 50% 50 ML SYRINGE IV PRN (13:00)
[2022-08-10] MEDS ORDERED: PANTOprazole 40 MG TAB PO SCH (13:00)
[2022-08-10] MEDS ORDERED: GLUCAGON FOR INJ 1 MG VIAL IM PRN (13:00)
[2022-08-10] MEDS ORDERED: CARBOHYDRATES FOR HYPOGLYCEMIA PO PRN (13:00)
[2022-08-10] MEDS ORDERED: GLUCOSE 10 TAB/TUBE PO PRN (13:00)
[2022-08-10] MEDS: INSULIN ASPART PER UNIT SC SCH ×4 (13:15→21:13)
[2022-08-10] MEDS: ACETAMINOPHEN 500 MG TAB PO SCH ×2 (13:25→20:35)
[2022-08-10] MEDS: KETOROLAC TROMETHAMINE 15 MG/ML VIAL IV SCH ×2 (13:26→20:32)
[2022-08-10] MEDS: FAMOTIDINE 20 MG TAB PO SCH ×2 (13:26→20:34)
--- NOTE | 2022-08-10 14:49 | Pharmacy Report ---
Pharmacy Glycemic Short Note 2 - Date of Service August 10, 2022 - Glycemic Short BSG Results (Last 24 hours): 08/10/22 08/10/22 08/10/22 05:43 10:23 12:09 POC Glucose 142 H 204 H 228 H OUTPATIENT ANTIDIABETIC REGIMEN: * glimepiride 4 mg bid ASSESSMENT: * 67 year old male now s/p total knee arthroplasty, type 2 diabetic managed only on glimepiride at home. * BSGs this morning elevated in 200s - does not appear that steroids were given. Possibly elevated from stress d/t surgery. Will trial novolog stress 2/3 dosing to start with. May add scale for basal insulin at dinner - only if BSGs remain >180 postop PLAN FOR INPATIENT GLYCEMIC CONTROL: * Hold outpatient oral diabetes medications * Basal insulin * Lantus 0-15 daily with dinner - only if BSG >180 * Bolus insulin * NovoLog per scale ACHS or Q6hrs while NPO * Goal Range: Low 110 mg/dL - High 140 mg/dL * Correction Factor: 15 mg/dL/unit * Nutritional / Prandial insulin per carb ratio of 1 unit per 7 grams CHO consumed
[2022-08-10] MEDS: ceFAZolin 2000MG 2,000 MG/15 ML SYR IV SCH (16:25)
[2022-08-10] MEDS: FERROUS GLUCONATE 324 MG TAB PO SCH (16:28)
[2022-08-10] MEDS: ASCORBIC ACID 500 MG TAB PO SCH (16:28)
[2022-08-10] MEDS ORDERED: LANTUS PER UNIT CHARGE SQ SCH (18:00)
--- NOTE | 2022-08-10 19:38 | Orthopedic Progress Note ---
Date of Service August 10, 2022 Assessment & Plan (1) Arthritis of knee, left: Plan: POD #0 s/p left TKA, doing as well as expected. Diabetic diet. WBAT with walker. OOB to chair. Continue pain control. Check labs tomorrow. DVT prophylaxis: TEDs 3 weeks, foot pumps while in hospital, ASA 81 mg BID for 6 weeks. Dressing: If patient will remain in hospital leave dressing alone; if able to be discharged can remove and replace if not dry; if dry may change to Silverlon. PT/OT. D/C planning. Present on Admission?: Yes Admission and Anticipated Discharge Date Admission Date: August 10, 2022 Subjective Doing well. Pain medicine is working. Review of Systems Review of Systems: All systems reviewed & are unremarkable except as noted in HPI & below Physical Exam Physical Exam: LLE: Sensation to light touch intact. moving toes and ankle. BCR < 2 sec. Calf soft and non-tender. Dressing clean, dry, intact. Results & Data ([facility]) Vital Signs (Past 12 Hours) Vital Signs Temp Pulse Resp BP Pulse Ox O2 Del Method O2 Flow Rate 08/10/22 14:29 36.6 C 66 16 126/71 93 Room Air 08/10/22 13:07 37.3 C 71 16 123/75 95 Room Air 08/10/22 12:34 36.8 C 68 18 149/74 H 97 Room Air 08/10/22 12:04 Nasal Cannula 2 08/10/22 12:04 36.8 C 63 18 145/74 H 95 Nasal Cannula 2 08/10/22 12:04 36.8 C 63 18 145/74 H 95 Nasal Cannula 2 08/10/22 11:45 36.4 C L 60 20 155/74 H 99 Nasal Cannula 2 08/10/22 11:30 59 L 20 141/69 H 99 Nasal Cannula 2 08/10/22 11:15 60 19 130/68 97 Nasal Cannula 2 08/10/22 11:00 62 18 135/64 95 Nasal Cannula 2 08/10/22 10:50 36.3 C L 60 17 124/62 96 Nasal Cannula 2 08/10/22 10:30 66 21 131/61 97 Oxymask 5 08/10/22 10:40 61 17 122/65 96 Oxymask 2 08/10/22 10:20 36.7 C 79 14 162/79 H 94 Oxymask 5 Laboratory Results Laboratory Results POC Glucose 188 mg/dl (70-99) H 08/10/22 18:07 SARS-CoV-2, RNA, NAAT NEGATIVE (NEGATIVE) 08/10/22 05:22 Impressions Knee X-Ray 08/10/22 10:29 LEFT KNEE 2 VIEWS History: Left total knee arthroplasty. Degenerative arthritis. Postop. FINDINGS: The patient is status post a left total knee arthroplasty. The hardware is intact. No fracture or dislocation. IMPRESSION: Left total knee arthroplasty. No evidence for hardware complication. ACT 112: Negative or not required by law. Electronically signed by: Magnus Eisenberg M.D. 08/10/2022 11:32 AM
[2022-08-10] MEDS: DOCUSATE SODIUM 100 MG CAP PO SCH (20:33)
[2022-08-10] MEDS: ASPIRIN 81 MG ECTAB PO SCH (20:34)
[2022-08-10] MEDS ORDERED: PRAVASTATIN SOD 40 MG TAB PO SCH (21:00)
[2022-08-10] MEDS ORDERED: SENNA 8.6 MG TAB PO SCH (21:00)
[2022-08-11] MEDS: KETOROLAC TROMETHAMINE 15 MG/ML VIAL IV SCH ×2 (01:55→10:21)
[2022-08-11] MEDS: ceFAZolin 2000MG 2,000 MG/15 ML SYR IV SCH (01:56)
[2022-08-11] MEDS: ACETAMINOPHEN 500 MG TAB PO SCH (04:14)
[2022-08-11] MEDS: INSULIN ASPART PER UNIT SC SCH ×3 (04:15→13:32)
[2022-08-11 07:58] LABS: Hematocrit (blood only) 34.4 % (40.1-51.0); Mean Corpuscular Hemoglobin 30.5 pg (25.0-34.0); Mean Corpuscular Hgb Conc 34.9 g/dL (32.0-36.0); Mean Corpuscular Volume 87.3 fL (80.0-100.0); Mean Platelet Volume 9.7 fL (9.4-12.4); Platelet Count 233 K/uL (130-400); RDW Coefficient of Variation 12.3 % (11.5-14.5); RDW Standard Deviation 39.5 fL (36.4-46.3); Red Blood Count 3.94 M/uL (4.63-6.08)
[2022-08-11 08:24] LABS: BUN Creatinine Ratio 27.5 (10-20); Calcium 8.5 mg/dl (8.5-10.1); Creatinine Clr Calc Pharmacy 107.4 ml/min; Est GFR (African American) 102.1 ml/min; Est GFR (Non-African American) 88.1 ml/min; Potassium 4.3 mmol/L (3.5-5.1)
[2022-08-11] MEDS ORDERED: lisinopril 20 MG TAB PO SCH (09:00)
[2022-08-11] MEDS ORDERED: dilTIAZem HCL 180 MG CAPCR PO SCH (09:00)
[2022-08-11] MEDS ORDERED: MULTIVITAMIN TAB PO SCH (09:00)
[2022-08-11] MEDS ORDERED: FUROSEMIDE 80 MG TAB PO SCH (09:00)
--- NOTE | 2022-08-11 09:08 | Orthopedic Progress Note ---
Date of Service August 11, 2022 Assessment & Plan (1) Status post total left knee replacement: Plan: Patient was educated regarding today's findings. Dressings were changed by me. Zipline was covered with a Silverlon dressing. This can remain in place until he is seen in the office in 2 weeks. It may get wet in the shower. Patient states he would like to be discharged to home today. He may do so after participating in PT and OT. He already has outpatient PT set up for Monday at the office. Importance of using his walker was discussed. Practice gentle range of motion. Continue aspirin 81 mg twice daily for 4 weeks for DVT prophylaxis. Knee high RONALD hose should be used daily. I did apply the RONALD hose to the left leg. Prescription for oxycodone 5 mg was sent to his pharmacy. Written discharge instructions were provided. Follow-up in the office in 2 weeks as scheduled for Zipline removal. Call the office with any other concerns. Admission and Anticipated Discharge Date Admission Date: August 10, 2022 Subjective Patient is seen in his room this morning. He has no current complaints. He states that he did well overnight. He had no pain until around 5 AM. Out of bed and has ambulated to the bathroom. He feels ready for discharge to home today. He denies any chest pain, shortness of breath, nausea, vomiting, abdominal pain, numbness, or tingling. Review of Systems Review of Systems: Unchanged from yesterday. Physical Exam Physical Exam: General: Well-developed, well-nourished, early white male, in no acute distress. Sitting up in bed. Alert and oriented. Conversive. Eating his breakfast. Skin: Postsurgical dressing is in place. Upon removal, there is minimal ecchymosis and edema. Zip line is in place. Wound edges are well approximated. There is no active bleeding. Scant dried blood on his inner dressings. Musculoskeletal: Patient has intact motor function of his ankle and toes. He is able to raise with minimal difficulty. He has full terminal extension. Flexion to around 45 degrees without difficulty. Neurologic: Gross sensation is intact across the left leg by soft touch. Peripheral pulses are 2+. Results & Data ([facility]) Vital Signs (Past 12 Hours) Vital Signs Temp Pulse Resp BP Pulse Ox O2 Del Method 08/11/22 08:00 37 C 87 16 162/84 H 95 08/11/22 04:05 37.2 C 84 20 136/69 96 CPAP 08/10/22 22:59 37 C 86 20 151/75 H 92 Room Air Laboratory Results CBC obtained this morning shows a white count of 13.4. H&H of 12.0 and 34.4. Shows sodium 136, potassium 4.3, chloride 104, CO2 27 and 0.91. Blood sugar 44. There was a max of 228 yesterday.
[2022-08-11 10:09] LABS: Estimated Average Glucose 143 mg/dl; Hemoglobin A1C 6.6 % (4.5-5.6)
[2022-08-11] MEDS: FERROUS GLUCONATE 324 MG TAB PO SCH (10:21)
[2022-08-11] MEDS: ASCORBIC ACID 500 MG TAB PO SCH (10:21)
[2022-08-11] MEDS: ASPIRIN 81 MG ECTAB PO SCH (10:21)
[2022-08-11] MEDS: FAMOTIDINE 20 MG TAB PO SCH (10:22)
[2022-08-11] MEDS: DOCUSATE SODIUM 100 MG CAP PO SCH (10:22)
[2022-08-11] MEDS: oxyCODONE HCL IR 5 MG TAB (IMMEDIATE RELEASE) PO PRN (13:31)
--- NOTE | 2022-08-16 19:17 | Discharge Summary ---
Date of Service August 11, 2022 Admission HPI Per Admitting Provider This 67-year-old male presented to the office with complaints of persisting left knee pain. He had tried conservative care management including activity modification, medication management, and use of assistive devices, without improvement. Patient obtain medical clearance and preoperative imaging. He was scheduled for total knee arthroplasty several times but was postponed secondary to skin infections and lack of bed space in the hospital due to COVID. He was able to undergo successful left knee total knee arthroplasty on 08/10/2022. Specialty Data Orthopedic Radiographic imaging obtained preoperatively showed end-stage DJD of the left knee. Discharge Data Consultations 08/04/22 13:01 Consult Hospitalist Routine Procedures Performed Operation Date: 08/10/22 07:00 Actual Procedures p Left Total Knee Arthroplasty(Left) - Adolfo Morrison MD Hospital Course (1) Status post total left knee replacement: Patient was admitted through same-day surgery on . He underwent successful left total knee arthroplasty. He was sent to the recovery room and eventually to the orthopedic floor. Rest of the evening was uneventful. Patient was reevaluated on . He did well overnight. Labs were unremarkable. Vitals remained stable. He felt well enough to be discharged to home. He did participate with PT and OT prior to discharge. Postsurgical dressing was changed and Silverlon adhesive dressings were applied. Wound looked very good at that time with no active bleeding and expected postoperative ecchymosis and edema. Zip line closure system was intact. Patient had intact function for his hip, knee, and ankle. Neurovascular status of the left leg was intact and unremarkable. Hospitalist consultation was obtained for medical management of his diabetes, hypertension, and sleep apnea. Blood sugars remained relatively well controlled while in the hospital. Glycemic management was performed by pharmacy. Discharge Instructions Written discharge instructions were provided. Prescription for oxycodone was sent to his pharmacy. He will use aspirin 81 mg twice daily for DVT prophylaxis postoperatively. Silverlon dressing was placed on postop day 1. He may get it wet in the shower. Follow-up in the office in 2 weeks as scheduled for Zipline removal.
== END 2022-08-11 13:54 | disposition home health service (06) ==
LOC: ASU 05:08 → 3W 05:08